=== PATIENT | male | born 1965 | race Caucasian/White ===

== ENCOUNTER → 2021-05-22 | Outpatient (CLI) | payer OTHER ==
[~2021-05-22] MED LIST: ATORVASTATIN CA20 M1 PO; BENICAR40 MG PO; JARDIANCE25 MG PO; METFORMIN XR500 MG PO; NOVOLOG10 ML SC; TRESIBA100 UNIT/1 SQ; ZOSYN 3.373.375 GM/1 IV
== END | disposition home or self-care (01) ==
LOC: COVID19 14:23
PROVIDERS: ATTEND Podiatrist
DX: M86.171 Other acute osteomyelitis, right ankle and foot (principal); Q66.71 Congenital pes cavus, right foot; M24.571 Contracture, right ankle; Z20.822 Contact with and (suspected) exposure to COVID-19

== ENCOUNTER 2021-05-27 02:08 | Inpatient (IN) | payer OTHER ==
[~2021-05-27] VITALS: Ht 182.8 cm; Wt 106.6 kg
[2021-05-27] VITALS (9 sets, daily range): BP systolic 89–132; BP diastolic 49–71
[~2021-05-27 02:08] MED LIST changes: -ZOSYN 3.373.375 GM/1 IV
[2021-05-28] VITALS: BP 145/72
[2021-05-28 06:32] LABS: BASO % 0.4 % (0.0-1.0); LYMPH # 0.9 10*3/uL (1.3-4.4); LYMPH % 9.5 % (27.0-41.0); MEAN CELL VOLUME 84.3 fl (80.0-94.0); MEAN CORPUSCULAR HGB 27.1 pg (27.0-31.0); MEAN CORPUSCULAR HGB CONC 32.1 g/dl (33.0-37.0); MEAN PLATELET VOLUME 9.8 fl (9.6-12.3); MONO # 0.7 10*3/uL (0.1-1.0); MONO % 7.3 % (3.0-9.0); NEUT # 7.7 10*3/uL (2.3-7.9); NEUT % 80.7 % (47.0-73.0); PLATELET COUNT AUTOMATED 221 10*3/uL (130-400); RED BLOOD COUNT 4.98 10*6/uL (4.50-5.90); RED CELL DISTRI WIDTH 16.3 % (0-14.5); WHITE BLOOD COUNT 9.6 10*3/uL (4.8-10.8)
[2021-05-28 06:47] LABS: ALBUMIN 2.6 gm/dl (3.1-4.5); CREATININE 1.48 mg/dL (0.70-1.30); POTASSIUM 4.6 mmol/L (3.5-5.1); TOTAL PROTEIN 7.4 gm/dL (6.4-8.2)
[2021-05-28 06:48] LABS: FREE T4 1.18 ng/dl (0.76-1.46)
[2021-05-28 06:52] LABS: THYROID STIM HORMONE (HS) 0.285 uIU/ml (0.358-4.75)
[2021-05-28 08:00] VITALS: BP 124/78
[2021-05-28 09:52] LABS: VITAMIN D, 25-HYDROXY 24.2 ng/mL (30-100)
[2021-05-28 11:07] LABS: ACID FAST SPEC PROCESSING Tissue Grinding (.)
[2021-05-28 12:00] VITALS: BP 138/73
[2021-05-28 16:00] VITALS: BP 128/85
[2021-05-28 20:00] VITALS: BP 121/68
[2021-05-29] VITALS: BP 114/65
[2021-05-29 09:00] VITALS: BP 116/72
[2021-05-29 12:00] VITALS: BP 111/69
[2021-05-29] MEDS ORDERED: ZOSYN 3.373.375 GM/1 IV (13:25)
[2021-05-29 16:00] VITALS: BP 115/62
[2021-05-29 16:41] LABS: BASO # 0.1 10*3/uL (0.0-0.1); BASO % 1.4 % (0.0-1.0); EOS # 0.4 10*3/uL (0.0-0.4); EOS % 4.8 % (1.0-4.0); HEMATOCRIT 41.5 % (42.0-52.0); LYMPH # 0.9 10*3/uL (1.3-4.4); LYMPH % 11.1 % (27.0-41.0); MEAN CELL VOLUME 84.2 fl (80.0-94.0); MEAN CORPUSCULAR HGB 26.8 pg (27.0-31.0); MEAN CORPUSCULAR HGB CONC 31.8 g/dl (33.0-37.0); MEAN PLATELET VOLUME 9.4 fl (9.6-12.3); MONO # 0.7 10*3/uL (0.1-1.0); MONO % 8.3 % (3.0-9.0); NEUT # 5.7 10*3/uL (2.3-7.9); NEUT % 71.5 % (47.0-73.0); PLATELET COUNT AUTOMATED 197 10*3/uL (130-400); RED BLOOD COUNT 4.93 10*6/uL (4.50-5.90); RED CELL DISTRI WIDTH 15.9 % (0-14.5); WHITE BLOOD COUNT 7.9 10*3/uL (4.8-10.8)
[2021-05-29 20:00] VITALS: BP 131/70; BP 133/61
[2021-05-30] VITALS: BP 128/72
[2021-05-30 06:18] LABS: MEAN CELL VOLUME 85.1 fl (80.0-94.0); MEAN CORPUSCULAR HGB 27.4 pg (27.0-31.0); MEAN CORPUSCULAR HGB CONC 32.2 g/dl (33.0-37.0); MEAN PLATELET VOLUME 9.3 fl (9.6-12.3); PLATELET COUNT AUTOMATED 177 10*3/uL (130-400); RED BLOOD COUNT 4.82 10*6/uL (4.50-5.90); RED CELL DISTRI WIDTH 15.5 % (0-14.5); WHITE BLOOD COUNT 7.3 10*3/uL (4.8-10.8)
[2021-05-30 06:34] LABS: ALBUMIN 2.7 gm/dl (3.1-4.5); ALKALINE PHOSPHATASE 88 U/L (45-117); BUN 18 mg/dl (7-24); CHLORIDE 103 mmol/L (98-107); CREATININE 0.82 mg/dL (0.70-1.30); POTASSIUM 4.2 mmol/L (3.5-5.1); SGOT/AST 7 IU/L (3-35); SGPT/ALT 10 U/L (12-78); SODIUM 136 mmol/L (136-145); TOTAL PROTEIN 6.9 gm/dL (6.4-8.2)
[2021-05-30 07:36] LABS: BASOPHILS 2 % (0-1); TOTAL CELLS COUNTED 100 #CELLS
[2021-05-30 07:37] LABS: PLATELET SUFFICIENCY NORMAL (NORMAL); POLYCHROMASIA SLIGHT; SPHEROCYTES FEW
[2021-05-30 08:00] VITALS: BP 157/88
[2021-05-30 12:00] VITALS: BP 132/72
[2021-05-30 16:00] VITALS: BP 132/72; BP 154/71
[2021-05-30 20:00] VITALS: BP 134/85
[2021-05-31] VITALS: BP 145/84
[2021-05-31 06:22] LABS: HEMATOCRIT 41.6 % (42.0-52.0); MEAN CORPUSCULAR HGB 27.3 pg (27.0-31.0); MEAN CORPUSCULAR HGB CONC 31.7 g/dl (33.0-37.0); MEAN PLATELET VOLUME 9.2 fl (9.6-12.3); PLATELET COUNT AUTOMATED 148 10*3/uL (130-400); RED BLOOD COUNT 4.84 10*6/uL (4.50-5.90); WHITE BLOOD COUNT 6.2 10*3/uL (4.8-10.8)
[2021-05-31 06:57] LABS: CHLORIDE 101 mmol/L (98-107); POTASSIUM 4.1 mmol/L (3.5-5.1); SODIUM 137 mmol/L (136-145)
[2021-05-31 07:12] LABS: BUN 12 mg/dl (7-24); CREATININE 0.68 mg/dL (0.70-1.30)
[2021-05-31 07:33] LABS: OVALOCYTES FEW; PLATELET SUFFICIENCY NORMAL (NORMAL); POLYCHROMASIA SLIGHT; TOTAL CELLS COUNTED 100 #CELLS
[2021-05-31 07:34] LABS: SPHEROCYTES FEW
[2021-05-31 08:00] VITALS: BP 118/59
[2021-05-31 12:00] VITALS: BP 119/73
[2021-05-31 16:00] VITALS: BP 144/86
[2021-05-31 20:00] VITALS: BP 126/62
[2021-06-01] VITALS: BP 138/85
[2021-06-01 06:12] LABS: HEMATOCRIT 40.7 % (42.0-52.0); MEAN CELL VOLUME 86.6 fl (80.0-94.0); MEAN CORPUSCULAR HGB 27.2 pg (27.0-31.0); MEAN CORPUSCULAR HGB CONC 31.4 g/dl (33.0-37.0); MEAN PLATELET VOLUME 9.2 fl (9.6-12.3); PLATELET COUNT AUTOMATED 155 10*3/uL (130-400); RED CELL DISTRI WIDTH 15.1 % (0-14.5); WHITE BLOOD COUNT 6.2 10*3/uL (4.8-10.8)
[2021-06-01 06:41] LABS: ALBUMIN 2.6 gm/dl (3.1-4.5); BUN 12 mg/dl (7-24); CHLORIDE 101 mmol/L (98-107); POTASSIUM 4.1 mmol/L (3.5-5.1); SGOT/AST 10 IU/L (3-35); SODIUM 138 mmol/L (136-145)
[2021-06-01 06:44] LABS: ALKALINE PHOSPHATASE 81 U/L (45-117); CREATININE 0.69 mg/dL (0.70-1.30); SGPT/ALT 14 U/L (12-78); TOTAL PROTEIN 6.9 gm/dL (6.4-8.2)
[2021-06-01 07:11] LABS: BASOPHILS 1 % (0-1); TOTAL CELLS COUNTED 100 #CELLS
[2021-06-01 07:12] LABS: PLATELET SUFFICIENCY NORMAL (NORMAL)
[2021-06-01 08:00] VITALS: BP 122/80
[2021-06-01 12:00] VITALS: BP 156/85
[2021-06-01 16:00] VITALS: BP 142/73
[2021-06-01 20:00] VITALS: BP 153/77
[2021-06-02] VITALS: BP 113/88
[2021-06-02 08:00] VITALS: BP 126/76
[2021-06-02 12:00] VITALS: BP 139/80
[2021-06-08] MEDS ORDERED: XARELTO10 MG PO (14:30)
[2021-06-10] MEDS ORDERED: TYLENOL EXTRA500 M2 PO (09:00)
[2021-07-11 16:07] LABS: ACID FAST CULTURE Negative (.)
== END 2021-06-02 16:19 | disposition home or self-care (01) | DRG 628 ==
LOC: SDC 02:08 → 5E 10:49 → SDC 14:00 → 5E 06-02 16:19
PROVIDERS: Podiatrist; Registered Nurse; Social Worker Clinical; Student in an Organized Health Care Education/Training Program; ADMIT Internal Medicine; ATTEND Internal Medicine
PROC: 0QBN0ZZ Excision of Right Metatarsal, Open Approach (ICD-10-PCS; principal; 2021-05-27)
PROC: 0QBN0ZX Excision of Right Metatarsal, Open Approach, Diagnostic (ICD-10-PCS; 2021-05-27)
PROC: 02HV33Z Insertion of Infusion Device into Superior Vena Cava, Percutaneous Approach (ICD-10-PCS; 2021-05-29)
DX: E11.69 Type 2 diabetes mellitus with other specified complication (principal); E43 Unspecified severe protein-calorie malnutrition; L03.115 Cellulitis of right lower limb; L02.611 Cutaneous abscess of right foot; E87.1 Hypo-osmolality and hyponatremia; M86.171 Other acute osteomyelitis, right ankle and foot; E78.5 Hyperlipidemia, unspecified; I10 Essential (primary) hypertension; E55.9 Vitamin D deficiency, unspecified; E53.8 Deficiency of other specified B group vitamins; M21.6X1 Other acquired deformities of right foot; M25.371 Other instability, right ankle; B96.89 Other specified bacterial agents as the cause of diseases classified elsewhere; E11.65 Type 2 diabetes mellitus with hyperglycemia; Z79.4 Long term (current) use of insulin; Z80.8 Family history of malignant neoplasm of other organs or systems; Z88.2 Allergy status to sulfonamides; Z68.31 Body mass index [BMI] 31.0-31.9, adult

== ENCOUNTER 2021-06-09 17:05 | Emergency (ER) | payer OTHER ==
[~2021-06-09] VITALS: Ht 187.9 cm; Wt 106.6 kg
[~2021-06-09 17:05] MED LIST changes: +XARELTO10 MG PO; +ZOSYN 3.373.375 GM/1 IV
[2021-06-10] MEDS ORDERED: TYLENOL EXTRA500 M2 PO (09:00)
== END 2021-06-09 20:26 | disposition home or self-care (01) ==
LOC: ED 17:05
DX: T82.898A Other specified complication of vascular prosthetic devices, implants and grafts, initial encounter (principal); Z79.899 Other long term (current) drug therapy; Z88.2 Allergy status to sulfonamides; Y92.89 Other specified places as the place of occurrence of the external cause

== ENCOUNTER → 2021-06-10 | Day surgery (SDC) | payer OTHER ==
[~2021-06-10] MED LIST changes: +TYLENOL EXTRA500 M2 PO
[2021-06-10 07:14] VITALS: BP 115/73
[2021-06-10 08:33] VITALS: BP 130/73
[2021-06-10 08:45] VITALS: BP 125/77
[2021-06-10 09:00] VITALS: BP 115/72
[2021-06-11 11:08] LABS: ACID FAST SPEC PROCESSING Tissue Grinding (.)
[2021-06-11 14:08] LABS: ACID FAST SPEC PROCESSING Tissue Grinding (.)
[2021-07-25 08:08] LABS: ACID FAST CULTURE Negative (.)
== END | disposition home or self-care (01) ==
LOC: SDC 06-05 12:45
PROVIDERS: ATTEND Podiatrist
DX: S91.301A Unspecified open wound, right foot, initial encounter (principal); M86.8X7 Other osteomyelitis, ankle and foot; I10 Essential (primary) hypertension; E11.9 Type 2 diabetes mellitus without complications; I25.10 Atherosclerotic heart disease of native coronary artery without angina pectoris; Z88.2 Allergy status to sulfonamides; X58.XXXA Exposure to other specified factors, initial encounter; Y93.89 Activity, other specified; Y92.89 Other specified places as the place of occurrence of the external cause; Y99.8 Other external cause status

== ENCOUNTER 2021-12-01 16:10 | Emergency (ER) | payer OTHER ==
[2021-12-02] MEDS ORDERED: ASPIRIN81 M1 PO (09:09)
== END 2021-12-01 17:30 | disposition left against medical advice (07) ==
LOC: ED 16:10
DX: Z53.21 Procedure and treatment not carried out due to patient leaving prior to being seen by health care provider (principal)

== ENCOUNTER → 2022-01-06 | Day surgery (SDC) | payer OTHER ==
[~2022-01-06] VITALS: Ht 182.8 cm; Wt 106.6 kg
[2022-01-06] VITALS (7 sets, daily range): BP systolic 110–150; BP diastolic 55–86
[~2022-01-06] MED LIST changes: +ASPIRIN81 M1 PO; +DALVANCE500 MG IV; +DOXYCYCLINE HY100 M3 PO; +LEVOFLOXACIN750 M2 PO; +TRAMADOL HCL50 MG PO
[2022-01-07 10:08] LABS: ACID FAST SPEC PROCESSING Tissue Grinding (.)
[2022-01-07 10:08] LABS: ACID FAST SPEC PROCESSING Tissue Grinding (.)
== END | disposition home or self-care (01) ==
LOC: SDC 01-01 09:30
PROVIDERS: ATTEND Podiatrist
DX: E08.621 Diabetes mellitus due to underlying condition with foot ulcer (principal); S91.301A Unspecified open wound, right foot, initial encounter; G57.51 Tarsal tunnel syndrome, right lower limb; E43 Unspecified severe protein-calorie malnutrition; N17.0 Acute kidney failure with tubular necrosis; D72.810 Lymphocytopenia; E87.1 Hypo-osmolality and hyponatremia; M86.8X7 Other osteomyelitis, ankle and foot; I10 Essential (primary) hypertension; I25.10 Atherosclerotic heart disease of native coronary artery without angina pectoris; I25.2 Old myocardial infarction; X58.XXXA Exposure to other specified factors, initial encounter; Y93.89 Activity, other specified; Y92.89 Other specified places as the place of occurrence of the external cause; Y99.8 Other external cause status

== ENCOUNTER → 2022-02-24 | Day surgery (SDC) | payer OTHER ==
[~2022-02-24] VITALS: Ht 182.8 cm; Wt 106.6 kg
[~2022-02-24] MED LIST changes: +CIPRO500 MG PO; +IRON325 M1 PO
[2022-02-24 07:40] VITALS: BP 157/73
[2022-02-24 11:33] VITALS: BP 145/73
[2022-02-24 11:48] VITALS: BP 143/71
[2022-02-24 12:03] VITALS: BP 145/73
[2022-02-24 12:18] VITALS: BP 131/75
[2022-02-24 12:33] VITALS: BP 122/73
[2022-02-25 14:08] LABS: ACID FAST SPEC PROCESSING Tissue Grinding (.)
[2022-02-25 14:08] LABS: ACID FAST SPEC PROCESSING Tissue Grinding (.)
[2022-02-25 14:08] LABS: ACID FAST SPEC PROCESSING Tissue Grinding (.)
== END | disposition home or self-care (01) ==
LOC: SDC 02-19 09:30
PROVIDERS: ATTEND Podiatrist
DX: M21.071 Valgus deformity, not elsewhere classified, right ankle (principal); M19.071 Primary osteoarthritis, right ankle and foot; S91.001A Unspecified open wound, right ankle, initial encounter; M25.371 Other instability, right ankle; I10 Essential (primary) hypertension; E11.9 Type 2 diabetes mellitus without complications; I25.10 Atherosclerotic heart disease of native coronary artery without angina pectoris; I25.2 Old myocardial infarction; Z79.899 Other long term (current) drug therapy; X58.XXXA Exposure to other specified factors, initial encounter; Y93.89 Activity, other specified; Y92.89 Other specified places as the place of occurrence of the external cause; Y99.8 Other external cause status